=== PATIENT | male | born 1990 | race Caucasian/White ===

== ENCOUNTER 2022-05-16 12:55 | Inpatient (IN) | payer SELFPAY ==
[~2022-05-16] VITALS: Ht 180.3 cm; Wt 71.8 kg
[2022-05-16] MEDS ORDERED: NS IV 1000 ML 1,000 ML IV STA (13:13)
[2022-05-16] MEDS ORDERED: inSUlin (REGULAR) HUMAN 1 UNIT/0.01 ML (CHARGE PER UNIT) IV STA (13:20)
[2022-05-16 13:34] LABS: BASOPHILS # (AUTO) 0.2 10^3/uL (0.0-0.1); BASOPHILS % (AUTO) 0 % (0-10); EOSINOPHILS % (AUTO) 0 % (0-10); HEMATOCRIT 48 % (40-54); HEMOGLOBIN 16.1 g/dL (13.3-17.7); LYMPHOCYTES # (AUTO) 3.1 10^3/uL (1.0-4.0); LYMPHOCYTES % (AUTO) 7 % (12-44); MEAN CORPUSCULAR HEMOGLOBIN 31 pg (25-34); MEAN CORPUSCULAR HGB CONC 34 g/dL (32-36); MEAN CORPUSCULAR VOLUME 91 fL (80-99); MEAN PLATELET VOLUME 9.9 fL (9.0-12.2); MONOCYTES # (AUTO) 2.8 10^3/uL (0.0-1.0); MONOCYTES % (AUTO) 6 % (0-12); NEUTROPHILS # (AUTO) 37.1 10^3/uL (1.8-7.8); NEUTROPHILS % (AUTO) 83 % (42-75); PLATELET COUNT 829 10^3/uL (130-400)
[2022-05-16] MEDS ORDERED: ONDANSETRON 4 MG/2 ML (SDV) Z0FRAN ONE (13:35)
[2022-05-16 13:39] LABS: WHITE BLOOD COUNT 44.7 10^3/uL (4.3-11.0)
[2022-05-16 13:55] LABS: BAND NEUTROPHILS 1 %; BASOPHILS % (MANUAL) 0 %; EOSINOPHILS % (MANUAL) 0 %; LYMPHOCYTES % (MANUAL) 8 %; METAMYELOCYTES % 2 %; MONOCYTES % (MANUAL) 11 %; MYELOCYTES % 2 %; NEUTROPHILS % (MANUAL) 76 %; RBC MORPH NORMAL
[2022-05-16 13:57] LABS: ALBUMIN 4.3 GM/DL (3.2-4.5); BILIRUBIN,TOTAL 0.4 MG/DL (0.1-1.0); CALCIUM 9.2 MG/DL (8.5-10.1); CREATININE SERUM 2.08 MG/DL (0.60-1.30); MAGNESIUM 2.7 MG/DL (1.6-2.4); PHOSPHORUS 8.4 MG/DL (2.3-4.7); TOTAL PROTEIN 8.1 GM/DL (6.4-8.2)
[2022-05-16] MEDS ORDERED: LACTATED RINGERS 1,000 ML IV ONE (14:00)
[2022-05-16 14:03] LABS: POTASSIUM 6.8 MMOL/L (3.6-5.0)
--- NOTE | 2022-05-16 14:07 | ED General ---
General Chief Complaint: Glucose Problems Stated Complaint: TYPE 1 DIABETES Source of Information: Patient, Family Exam Limitations: Physical Impairments History of Present Illness Date Seen by Provider: May 16, 2022 Time Seen by Provider: 13:13 Initial Comments Here with report of elevated blood sugar and concerns for DKA. Patient is a type I diabetic since 7 years old. Apparently he ran out of his insulin 4 days ago. Patient and family report calling the clinic on 05/13/2022 and asking for refill. They were told that he could not have a refill until doctor's appointment on 06/01/2022 per the family. Apparently the refill was filled today patient was becoming increasingly confused and so they brought him directly to the emergency department. Patient reports significantly dry mouth, weakness, recent fevers and vomiting. He is rapidly breathing and appears uncomfortable. He also appears somewhat confused. History from patient and from patient's father and significant other. Timing/Duration: 3-4 Days, Getting Worse Severity: Moderate, Severe Associated Systoms: Cough (Intermittent for 2 weeks), Fever/Chills (Intermittent over the last few days), Nausea/Vomiting, Shortness of Air, Weakness Allergies and Home Medications Allergies Coded Allergies: No Known Drug Allergies (Unverified , 05/16/22) Patient Home Medication List Home Medication List Reviewed: Yes Review of Systems Review of Systems Constitutional: see HPI, fever, malaise EENTM: No nose congestion, No throat pain Respiratory: cough, short of breath Cardiovascular: no symptoms reported Gastrointestinal: No diarrhea; nausea, vomiting Genitourinary: no symptoms reported Musculoskeletal: no symptoms reported All Other Systems Reviewed Negative Unless Noted: Yes Past Mywvmfa-Hgeloo-Mvtjrr Hx Patient Social History Tobacco Use?: Yes Tobacco type used: Cigarettes Substance use?: Yes Substance type: Marijuana Alcohol Use?: No Past Medical History Surgeries: No Respiratory: No Cardiac: No Neurological: No Genitourinary: No Gastrointestinal: No Musculoskeletal: No Endocrine: Yes Diabetes, Insulin dep Family Medical History No Pertinent Family Hx Physical Exam Vital Signs Vital Signs - First Documented 05/16/22 13:04 Temp 36.6 Pulse 107 Resp 24 B/P (MAP) 145/85 (105) Pulse Ox 98 O2 Delivery Room Air Capillary Refill : Height, Weight, BMI Height: '" Weight: lbs. oz. kg; BMI Method: General Appearance: WD/WN, Moderate Distress HEENT: PERRL/EOMI, Other (Very dry mucous membranes) Neck: Non Tender, Supple Respiratory: No Crackles; Respiratory Distress; No Wheezing; Other (Tachypneic) Cardiovascular: No Murmur, Tachycardia Gastrointestinal: Non Tender, Soft Back: Normal Inspection, No CVA Tenderness, No Vertebral Tenderness Extremity: Normal Range of Motion, Non Tender Neurologic/Psychiatric: Alert, Depressed Affect, Disoriented (Confused) Skin: Normal Color, Warm/Dry Focused Exam Lactate Level 05/16/22 13:54: Lactic Acid Level 6.21*H Lactic Acid Level Laboratory Tests Test 05/16/22 13:54 Lactic Acid Level 6.21 MMOL/L (0.50-2.00) *H Progress/Results/Core Measures Suspected Sepsis SIRS Temperature: Pulse: Respiratory Rate: Laboratory Tests 05/16/22 13:27: White Blood Count 44.7*H Blood Pressure / Mean: 05/16/22 13:54: Lactic Acid Level 6.21*H Laboratory Tests 05/16/22 13:27: Creatinine 2.08H, Platelet Count 829H, Total Bilirubin 0.4 Results/Orders Lab Results Laboratory Tests Test 05/16/22 13:27 05/16/22 13:54 05/16/22 14:06 Range/Units White Blood Count 44.7 *H 4.3-11.0 10^3/uL Red Blood Count 5.26 4.30-5.52 10^6/uL Hemoglobin 16.1 13.3-17.7 g/dL Hematocrit 48 40-54 % Mean Corpuscular Volume 91 80-99 fL Mean Corpuscular Hemoglobin 31 25-34 pg Mean Corpuscular Hemoglobin Concent 34 32-36 g/dL Red Cell Distribution Width 12.1 10.0-14.5 % Platelet Count 829 H 130-400 10^3/uL Mean Platelet Volume 9.9 9.0-12.2 fL Immature Granulocyte % (Auto) 3 % Neutrophils (%) (Auto) 83 H 42-75 % Lymphocytes (%) (Auto) 7 L 12-44 % Monocytes (%) (Auto) 6 0-12 % Eosinophils (%) (Auto) 0 0-10 % Basophils (%) (Auto) 0 0-10 % Neutrophils # (Auto) 37.1 H 1.8-7.8 10^3/uL Lymphocytes # (Auto) 3.1 1.0-4.0 10^3/uL Monocytes # (Auto) 2.8 H 0.0-1.0 10^3/uL Eosinophils # (Auto) 0.0 0.0-0.3 10^3/uL Basophils # (Auto) 0.2 H 0.0-0.1 10^3/uL Immature Granulocyte # (Auto) 1.5 H 0.0-0.1 10^3/uL Neutrophils % (Manual) 76 % Lymphocytes % (Manual) 8 % Monocytes % (Manual) 11 % Eosinophils % (Manual) 0 % Basophils % (Manual) 0 % Metamyelocytes % 2 % Myelocytes % 2 % Band Neutrophils 1 % Blood Morphology Comment NORMAL Venous Blood pH 6.97 L 7.31-7.41 Venous Blood Partial Pressure CO2 24 L 40-52 MMHG Venous Blood HCO3 5 L 22-28 MMOL/L Sodium Level 125 *L 135-145 MMOL/L Potassium Level 6.8 *H 3.6-5.0 MMOL/L Chloride Level 89 L 98-107 MMOL/L Carbon Dioxide Level 7 *L 21-32 MMOL/L Anion Gap 29 H 5-14 MMOL/L Blood Urea Nitrogen 35 H 7-18 MG/DL Creatinine 2.08 H 0.60-1.30 MG/DL Estimat Glomerular Filtration Rate 43 BUN/Creatinine Ratio 17 Glucose Level 870 *H 70-105 MG/DL Calcium Level 9.2 8.5-10.1 MG/DL Corrected Calcium 9.0 8.5-10.1 MG/DL Phosphorus Level 8.4 H 2.3-4.7 MG/DL Magnesium Level 2.7 H 1.6-2.4 MG/DL Total Bilirubin 0.4 0.1-1.0 MG/DL Aspartate Amino Transf (AST/SGOT) 12 5-34 U/L Alanine Aminotransferase (ALT/SGPT) 18 0-55 U/L Alkaline Phosphatase 193 H 40-136 U/L Total Protein 8.1 6.4-8.2 GM/DL Albumin 4.3 3.2-4.5 GM/DL Lactic Acid Level 6.21 *H 0.50-2.00 MMOL/L Urine Color YELLOW Urine Clarity CLEAR Urine pH 5.5 5-9 Urine Specific [place] 1.025 H 1.016-1.022 Urine Protein NEGATIVE NEGATIVE Urine Glucose (UA) 3+ H NEGATIVE Urine Ketones 3+ H NEGATIVE Urine Nitrite NEGATIVE NEGATIVE Urine Bilirubin NEGATIVE NEGATIVE Urine Urobilinogen 0.2 < = 1.0 MG/DL Urine Leukocyte Esterase NEGATIVE NEGATIVE Urine RBC (Auto) TRACE-I H NEGATIVE Urine RBC NONE /HPF Urine WBC NONE /HPF Urine Squamous Epithelial Cells NONE /HPF Urine Crystals NONE /LPF Urine Bacteria NEGATIVE /HPF Urine Casts NONE /LPF Urine Mucus NEGATIVE /LPF Urine Culture Indicated NO Influenza Type A (RT-PCR) Detected H Not Detecte Influenza Type B (RT-PCR) Not Detected Not Detecte SARS-CoV-2 RNA (RT-PCR) Not Detected Not Detecte My Orders Orders - BLADIMIR BAUTISTA MD Accucheck Stat ONCE (05/16/22 13:13) Ed Iv/Invasive Line Start (05/16/22 13:13) Cbc With Automated Diff (05/16/22 13:13) Comprehensive Metabolic Panel (05/16/22 13:13) Magnesium (05/16/22 13:13) Ua Culture If Indicated (05/16/22 13:13) Phosphorus (05/16/22 13:13) Ed Iv/Invasive Line Start (05/16/22 13:13) Ns Iv 1000 Ml (Sodium Chloride 0.9%) (05/16/22 13:13) Insulin (Regular) Human (Novolin R (Per (05/16/22 13:20) Venous Blood Gas (05/16/22 13:20) Ondansetron Injection (Zofran Injectio (05/16/22 13:35) Manual Differential (05/16/22 13:27) Lactic Acid Analyzer (05/16/22 13:49) Blood Culture (05/16/22 13:49) Lactated Ringers (Lr 1000 Ml Iv Solution (05/16/22 14:00) Influenza A And B By Pcr (05/16/22 14:00) Covid 19 Inhouse Test (05/16/22 14:00) Chest 1 View, Ap/Pa Only (05/16/22 14:38) Vital Signs Adult Sepsis Patie Q15M (05/16/22 14:38) Remove Rings In Anticipation O (05/16/22 14:38) Ns Iv 1000 Ml (Sodium Chloride 0.9%) (05/16/22 15:00) Insulin Regular Drip (Myxredlin 100 Unit (05/16/22 15:15) Code/Resuscitation (05/16/22 15:07) Medications Given in ED Current Medications Medications Dose Ordered Sig/Jonathon Route Start Time Stop Time Status Last Admin Dose Admin Lactated Ringer's 1,000 ml @ 0 mls/hr Q0M ONCE IV 05/16/22 14:00 05/16/22 14:01 DC 05/16/22 13:57 1,000 MLS/HR Ondansetron HCl 4 mg STK-MED ONCE .ROUTE 05/16/22 13:35 05/16/22 13:36 DC 05/16/22 13:39 4 MG Vital Signs/I&O 05/16/22 13:04 Temp 36.6 Pulse 107 Resp 24 B/P (MAP) 145/85 (105) Pulse Ox 98 O2 Delivery Room Air Capillary Refill : Point of Care Testing Finger Stick Blood Glucose: 600 Blood Glucose Action Taken: DR. BAUTISTA NOTIFIED Progress Note : Progress Note Seen and evaluated. IV x2, CBC, CMP, UA, magnesium, phosphate, venous blood gas ordered. We have added blood cultures and lactic acid due to his extremely high white count although this may be related to significant dehydration due to DKA. Blood sugar is too high to read. Normal saline 1 L bolus and LR 1 L bolus ordered as well as insulin 7 units IV. Monitor patient. We will go ahead and check COVID and influenza secondary to report of recent fever. It sounds like he may have been sick over the last couple of weeks. 1512: Patient has been noted to be influenza A positive. I have notified the patient of this. His blood sugars are still too high to read. He is still quite dry. Repeat bolus of normal saline 1 L bolus ordered and this will be his third total liter of fluid. Due to the elevated white count and influenza positive we have ordered chest x-ray and that is pending. I have discussed the case with Dr. De Santiago. We did order insulin drip and I have instructed the nurse on use. 1522: I have discussed findings and concerns with patient's significant other as well as his mother and detailed current therapy and admission. Patient is still doing much better. Admit, inpatient status to the ICU. Patient and family agree with plan. Diagnostic Imaging Diagonstic Imaging: Xray Critical Care Note Critical Care Start Time: 13:13 Stop Time: 13:23 Total Time (minutes) 45 Departure Communication (Admissions) Time/Spoke to Admitting Phy: 15:04 Impression Primary Impression: Diabetic ketoacidosis Qualified Codes: E10.10 - Type 1 diabetes mellitus with ketoacidosis without coma Additional Impressions: Influenza A Dehydration Disposition: ADMITTED INPATIENT Condition: Critical Admissions Decision to Admit Reason: Admit from ER (General) Decision to Admit/Date: May 16, 2022 Time/Decision to Admit Time: 15:04 Departure-Patient Inst. Referrals: NASEEM VALDEZ (PCP/Family) Primary Care Physician BLADIMIR BAUTISTA MD May 16, 2022 14:07
[2022-05-16 14:09] LABS: BILIRUBIN,URINE NEGATIVE (NEGATIVE); CLARITY,URINE CLEAR; COLOR,URINE YELLOW; GLUCOSE, URINE (UA) 3+ (NEGATIVE); KETONES,URINE 3+ (NEGATIVE); LEUKOCYTE ESTERASE ,URINE NEGATIVE (NEGATIVE); NITRITE,URINE NEGATIVE (NEGATIVE); PH,URINE 5.5 (5-9); PROTEIN,URINE NEGATIVE (NEGATIVE)
[2022-05-16 14:18] LABS: BACTERIA,URINE NEGATIVE /HPF
[2022-05-16] MEDS ORDERED: NS IV 1000 ML 1,000 ML IV ONE (15:00)
--- NOTE | 2022-05-16 15:25 | Diagnostic Imaging Report ---
INDICATION: Influenza positive, elevated blood sugar. Frontal chest obtained at 3:14 p.m. There is no prior study for comparison. Heart and mediastinal silhouette are normal in appearance. The lungs show no focal infiltrate. There is no pneumothorax or pleural fluid. IMPRESSION: Negative chest. Dictated by: Dictated on workstation # [id number]
[2022-05-16] MEDS ORDERED: ONDANSETRON 4 MG/2 ML (SDV) Z0FRAN IVP ONE (15:30)
[2022-05-16] MEDS ORDERED: 1/2 NS IV SOLUTION 1,000 ML IV ONE (18:09)
[2022-05-16] MEDS ORDERED: ONDANSETRON 4 MG (ZOFRAN) ORAL DISSOLVE TAB PO PRN (18:15)
[2022-05-16] MEDS ORDERED: POTASSIUM CL 10MEQ/50ML IVPB 50 ML IV SCH (18:15)
[2022-05-16] MEDS ORDERED: ONDANSETRON 4 MG/2 ML (SDV) Z0FRAN IV PRN (18:15)
[2022-05-16] MEDS ORDERED: BISACODYL 10 MG SUPP (DULCOLAX) PR PRN (18:15)
[2022-05-16] MEDS ORDERED: MILK OF MAGNESIA 400 MG/5 ML 30 ML UDC PO PRN (18:15)
[2022-05-16] MEDS ORDERED: polyethylene glycoL POWDER 17 GM (MIRALAX) PACK PO PRN (18:15)
[2022-05-16] MEDS ORDERED: NS IV 500 ML 500 ML IV PRN (18:15)
[2022-05-16] MEDS ORDERED: LACTULOSE SYRUP 10GM/15ML (ENULOSE) 30ML UDC PO PRN (18:15)
[2022-05-16] MEDS ORDERED: HYDROmorphone 2 MG/ML VIAL (DILAUDID) IV PRN (18:15)
[2022-05-16] MEDS ORDERED: MELATONIN 3 MG TABLET PO PRN (18:15)
[2022-05-16] MEDS ORDERED: NS IV 1000 ML 1,000 ML IV SCH (18:15)
[2022-05-16] MEDS ORDERED: ACETAMINOPHEN 325 MG TABLET PO PRN (18:15)
[2022-05-16] MEDS ORDERED: ANTACID SUSP 30 ML UDC (MYLANTA) PO PRN (18:15)
[2022-05-16] MEDS ORDERED: ALPRAZolam 1 MG (XANAX) TAB PO PRN (18:15)
[2022-05-16] MEDS ORDERED: CALCIUM CARBONATE 500 MG (TUMS) TAB.CHEW PO PRN (18:15)
[2022-05-16] MEDS ORDERED: diphenhydrAMINE 25 MG TAB (BENADRYL) PO PRN (18:15)
[2022-05-16] MEDS ORDERED: diphenhydrAMINE 50 MG/ML INJ (BENADRYL) IVP PRN (18:15)
[2022-05-16] MEDS: 1/2 NS IV SOLUTION 1,000 ML IV SCH ×2 (18:27→22:35)
[2022-05-16 18:48] VITALS: BP 145/85
[2022-05-16 19:50] LABS: POTASSIUM 5.1 MMOL/L (3.6-5.0)
[2022-05-16 19:51] LABS: CALCIUM 8.5 MG/DL (8.5-10.1)
[2022-05-16 19:56] LABS: CREATININE SERUM 1.49 MG/DL (0.60-1.30)
[2022-05-16] MEDS: SENNOSIDES 8.6 MG (SENOKOT) TAB PO SCH (20:30)
[2022-05-16] MEDS: DOCUSATE SODIUM 100 MG (COLACE) CAP PO SCH (20:30)
[2022-05-16] MEDS ORDERED: OSELTAMIVIR 30 MG (TAMIFLU) CAPSULE PO SCH (21:00)
[2022-05-16] MEDS: RT-ALBUTEROL SULF 2.5 MG/3 ML PRE-MIX VIAL INH SCH (21:08)
[2022-05-16 22:54] LABS: CALCIUM 8.5 MG/DL (8.5-10.1); CREATININE SERUM 1.31 MG/DL (0.60-1.30); POTASSIUM 4.7 MMOL/L (3.6-5.0)
[2022-05-16] MEDS: POTASSIUM CL 10MEQ/50ML IVPB 50 ML IV SCH (23:24)
[2022-05-17] MEDS: D5 1/2 NS 1000 ML IV SOLUTION 1,000 ML IV SCH ×3 (01:32→15:57)
[2022-05-17] MEDS: POTASSIUM CL 10MEQ/50ML IVPB 50 ML IV SCH ×7 (01:32→22:33)
[2022-05-17] MEDS: 1/2 NS IV SOLUTION 1,000 ML IV SCH ×5 (02:15→22:15)
[2022-05-17 02:44] LABS: CALCIUM 9.4 MG/DL (8.5-10.1); CREATININE SERUM 1.3 MG/DL (0.60-1.30); POTASSIUM 5.2 MMOL/L (3.6-5.0)
[2022-05-17 04:52] LABS: ABG BASE EXCESS -10.2 MMOL/L (-2.5-2.5); ABG OXYGEN SATURATION 96 % (94-100); ABG PCO2 30 MMHG (35-45); ABG PO2 76 MMHG (79-93); ABG TCO2 15.8 MMOL/L (21.0-31.0)
[2022-05-17 04:53] LABS: ALLENS TEST YES-POS; INSPIRED O2 RA; PATIENT TEMP 36.6; VENTILATOR NO
[2022-05-17 04:54] LABS: ABG PH 7.31 (7.37-7.43)
[2022-05-17 05:48] LABS: BASOPHILS # (AUTO) 0.1 10^3/uL (0.0-0.1); BASOPHILS % (AUTO) 1 % (0-10); EOSINOPHILS # (AUTO) 0.3 10^3/uL (0.0-0.3); EOSINOPHILS % (AUTO) 3 % (0-10); HEMATOCRIT 40 % (40-54); HEMOGLOBIN 13.6 g/dL (13.3-17.7); LYMPHOCYTES # (AUTO) 3.2 10^3/uL (1.0-4.0); LYMPHOCYTES % (AUTO) 40 % (12-44); MEAN CORPUSCULAR HEMOGLOBIN 31 pg (25-34); MEAN CORPUSCULAR HGB CONC 34 g/dL (32-36); MEAN CORPUSCULAR VOLUME 89 fL (80-99); MEAN PLATELET VOLUME 10.3 fL (9.0-12.2); MONOCYTES # (AUTO) 0.6 10^3/uL (0.0-1.0); MONOCYTES % (AUTO) 8 % (0-12); NEUTROPHILS # (AUTO) 3.8 10^3/uL (1.8-7.8); NEUTROPHILS % (AUTO) 47 % (42-75); PLATELET COUNT 335 10^3/uL (130-400)
[2022-05-17 06:26] LABS: ALBUMIN 3.5 GM/DL (3.2-4.5); BILIRUBIN,TOTAL 0.4 MG/DL (0.1-1.0); CREATININE SERUM 1.21 MG/DL (0.60-1.30); MAGNESIUM 1.9 MG/DL (1.6-2.4); PHOSPHORUS 2.4 MG/DL (2.3-4.7); POTASSIUM 4.8 MMOL/L (3.6-5.0); TOTAL PROTEIN 6.6 GM/DL (6.4-8.2)
[2022-05-17] MEDS: MAGNESIUM 1 GM/100 ML IVPB 100 ML IV SCH (06:33)
[2022-05-17] MEDS: KCL 20 MEQ TAB (K-DUR) PO SCH (06:33)
[2022-05-17] MEDS: RT-ALBUTEROL SULF 2.5 MG/3 ML PRE-MIX VIAL INH SCH ×2 (07:31→21:57)
[2022-05-17] MEDS: OSELTAMIVIR 75 MG (TAMIFLU) CAPSULE PO SCH ×2 (08:46→20:42)
[2022-05-17] MEDS: SENNOSIDES 8.6 MG (SENOKOT) TAB PO SCH ×2 (08:47→20:15)
[2022-05-17] MEDS: DOCUSATE SODIUM 100 MG (COLACE) CAP PO SCH ×2 (08:47→20:15)
--- NOTE | 2022-05-17 08:53 | Diagnostic Imaging Report ---
INDICATION: Dyspnea. Comparison is made with prior examination of 05/16/2022. FINDINGS: The heart size, mediastinal configuration, and pulmonary vascularity are within normal limits. There is no pleural effusion, pneumothorax, or pneumonia. The osseous structures are unremarkable. IMPRESSION: No acute cardiopulmonary abnormality. Dictated by: Dictated on workstation # [id number]
--- NOTE | 2022-05-17 10:34 | Tele-ICU Consult ---
History of Present Illness History of Present Illness Date Seen by Provider: May 17, 2022 Time Seen by Provider: 10:33 Date of Admission (Tele-ICU Physician , consultation as per request of PCP Service provided via interactive audio and video [facility] [employer] [facility] system to a patient admitted to ICU bed in [facility]. Available chart/ vitals / labs / Images reviewed H&P is from ER notes Patient's information available about PMH, Shx, Fhx allergy reviewed inEMR. ROS as per chart and RN report Now in ICU, hemodynamically stable Video assessment done using teleICU camera, rest of exam as per RN Discussed with RN. Consultants: Hospital course: A/P DKA with DM type I -precipitated by infection *Insulin drip, continue to monitor for resolution of acidosis, AG and e lectrolytes. Continue hydration. *Tx Gastroparesis influenza A positive - tamiflu started 05/16 CHAZ - dehydration, hypotension - cont IVF - follow closely. improving Hyperkalemia due to CHAZ - improved - follow closely Leukocytosis - improved off ABX , follow PseudoHyponatremia - improved , follow Lines : periph , (Central Line Necessity Reviewed) Campuzano: void OG: Nutrition: po Analgesia: Anxiety/ delirium none VTE Prophylaxis: hep Stress Ulcer Prophylaxis: Glycemic Control: Plans in collaboration with bedside consultants and IM MDs. Discussed with RN to reach out if any questions or concerns A total of 32 minutes of critical care time was devoted to this patient today, required to treat and/or prevent further deterioration of critical care condition ( as above ) . I am remotely monitoring this patient from another state. I am unable to do the bedside exam, and history/physical and pertinent information is taken from other notes in the computer and bedside staff. . Allergies and Home Medications Allergies Coded Allergies: No Known Drug Allergies (Unverified , 05/16/22) Past Medical/Social/Family Hx Patient Social History Tobacco Use?: Yes Tobacco type used: Cigarettes Smoking Status: Current Everyday Smoker Use of E-Cig and/or Vaping dev: No Substance use?: No Substance type: Marijuana Alcohol Use?: No Pt stated abuse/neglect: No Immunizations Up To Date Influenza Vaccine Up-to-Date: Yes; Up-to-Date Current Status Advance Directives: No Communicates: Verbally Primary Language: Icelandic Preferred Spoken Language: Icelandic Is interpretation needed?: No Implanted or Applied Medical D: None Review of Systems Constitutional: see HPI Focused Exam Lactate Level 05/16/22 13:54: Lactic Acid Level 6.21*H 05/16/22 16:10: Lactic Acid Level 2.32*H 05/16/22 22:05: Lactic Acid Level 0.83 Height, Weight, BMI Height: '" Weight: lbs. oz. kg; 22.24 BMI Method: Exam Exam Patient acknowledged, consented, and participated in this virtual visit which was conducted using real time audio/video Vital Signs Date Time Temp Pulse Resp B/P (MAP) Pulse Ox O2 Delivery O2 Flow Rate FiO2 05/17/22 10:00 94 31 106/63 (77) 97 Room Air 05/17/22 09:00 101 18 117/69 (85) 96 Room Air 05/17/22 08:00 96 Room Air 05/17/22 08:00 37.0 05/17/22 08:00 106 17 114/74 (87) 95 Room Air 05/17/22 07:31 98 Room Air 05/17/22 07:00 105 05/17/22 07:00 101 19 119/79 (92) 97 Room Air 05/17/22 06:00 99 14 126/71 (89) 96 Room Air 05/17/22 05:00 107 19 130/76 (94) 95 Room Air 05/17/22 04:00 109 19 119/75 (90) 95 Room Air 05/17/22 03:43 36.5 111 16 121/83 (96) 94 Room Air 05/17/22 03:42 94 Room Air 05/17/22 02:00 118 29 132/86 (101) 95 Room Air 05/17/22 01:00 112 22 128/72 (90) 95 Room Air 05/17/22 01:00 112 05/17/22 00:00 36.6 112 23 119/79 (92) 94 Room Air 05/16/22 23:41 95 Room Air 05/16/22 23:00 107 22 129/75 (93) 94 Room Air 05/16/22 22:00 116 21 127/84 (98) 95 Room Air 05/16/22 21:08 99 Room Air 05/16/22 21:00 113 26 128/87 (101) 96 Room Air 05/16/22 20:00 122 17 134/81 (98) 97 Room Air 05/16/22 20:00 36.8 05/16/22 19:45 97 Room Air 05/16/22 19:45 121 23 140/82 (101) 96 Room Air 05/16/22 19:30 123 26 130/78 (95) 96 Room Air 05/16/22 19:15 121 18 121/57 (78) 96 Room Air 05/16/22 19:00 117 11 134/70 (91) 96 Room Air 05/16/22 19:00 117 05/16/22 18:48 36.6 107 98 21 05/16/22 18:00 Room Air 05/16/22 17:44 120 24 137/80 98 Room Air 05/16/22 13:04 36.6 107 24 145/85 (105) 98 Room Air I & O 05/17/22 07:00 Intake Total 6120 ml Output Total 200 ml Balance 5920 ml Height & Weight Height: '" Weight: lbs. oz. kg; 22.24 BMI Method: General Appearance: No Apparent Distress, WD/WN, Moderate Distress HEENT: PERRL/EOMI, Other (Very dry mucous membranes) Neck: Non Tender, Supple Respiratory: No Crackles; Respiratory Distress; No Wheezing; Other (Tachypneic) Cardiovascular: No Murmur, Tachycardia Capillary Refill: Less Than 3 Seconds Extremity: Normal Range of Motion, Non Tender Neurologic/Psychiatric: Alert, Depressed Affect, Disoriented (Confused) Skin: Normal Color, Warm/Dry Results Lab Laboratory Tests 05/16/22 13:27 05/16/22 19:15 05/16/22 22:05 05/17/22 02:05 05/17/22 04:50 Assessment/Plan Assessment/Plan 1 EVIN DEGROOT MD May 17, 2022 10:33
[2022-05-17 11:04] LABS: POTASSIUM 3.6 MMOL/L (3.6-5.0)
[2022-05-17 11:05] LABS: CALCIUM 8.3 MG/DL (8.5-10.1)
[2022-05-17 11:10] LABS: CREATININE SERUM 1.02 MG/DL (0.60-1.30)
--- NOTE | 2022-05-17 12:26 | History & Physical-Hospitalist ---
ISA[address]A [address] 05/17/22 1226: History of Present Illness HPI/Chief Complaint CC: DKA HPI: Adithya Olson is a 31 yo male who was admitted to the ICU from the ED on 05/16 with diagnosis of DKA. The patient arrived to the ED with father and significant other with altered mental state. History at the time was obtained from family, who stated the patient is a type 1 diabetic and ran out of his insulin 4 days ago and was unable to obtain refills until yesterday. However, by that time, the patient had developed altered mental status with confusion, accompanied by xerostomia, generalized weakness, fatigue, and multiple episodes of vomiting, prompting family to bring the patient to the ED. ED noted BS too high to be read initially, with beta-hydroxybutyrate of 8.47. Further bloodwork showed WBC of 44.7, lactic acid of 6.21, BUN of 22. These have all corrected to within normal levels at time of evaluation on 05/17. ABG obtained in the ED showed pH 7.31, pCO2 30, pO2 76. Patient swabbed and returned influenza A positive. Insulin drip started in the ED. On evaluation today, the patient is somnolent but easily rousable. He is alert and oriented x3 and states he feels the same now as he did yesterday, with fatigue, nausea, and generalized weakness. He notes he has not vomited since arrival to the hospital, but he does endorse burning epigastric pain which he attributes to multiple episodes of vomiting over the past few days prior to arrival. The patient denies any other pains or complaints. He states he has had no urinary symptoms, diarrhea, or constipation. Source: patient, old records Exam Limitations: no limitations Date Seen 05/17/22 Time Seen by a Provider: 09:25 Attending Physician Jin Jacob PCP Admitting Physician: Ca Bean DO Attending Physician: Ca Bean DO Referring Physician Date of Admission May 16, 2022 at 15:11 Home Medications & Allergies Home Medications Reviewed patient Home Medication Reconciliation performed by pharmacy medication reconciliations satellite tv technician and/or nursing. Patients Allergies have been reviewed. Allergies Allergies Coded Allergies No Known Drug Allergies ([id number]/13/22) Past Fqamvgz-Kkkaag-Bdptsf Hx Patient Social History Tobacco Use?: Yes Tobacco type used: Cigarettes Smoking Status: Current Everyday Smoker Use of E-Cig and/or Vaping dev: No Substance use?: No Substance type: Marijuana Alcohol Use?: No Pt feels they are or have been: No Current Status Advance Directives: No Communicates: Verbally Primary Language: Mongolian Preferred Spoken Language: Mongolian Is interpretation needed?: No Implanted or Applied Medical D: None Past Medical History Diabetes, Insulin dep (type 1, history of DKA) Family Medical History No Pertinent Family Hx Review of Systems Constitutional: malaise, weakness Respiratory: No dyspnea on exertion, No short of breath Cardiovascular: No chest pain Gastrointestinal: No abdominal pain, No constipation, No diarrhea; nausea; No vomiting Genitourinary: No dysuria, No frequency Other limited due to patient's clinical condition Physical Exam Physical Exam Vital Signs Vital Signs - First Documented 05/16/22 05/16/22 13:04 18:48 Temp 36.6 Pulse 107 Resp 24 B/P (MAP) 145/85 (105) Pulse Ox 98 O2 Delivery Room Air FiO2 21 Capillary Refill : Less Than 3 Seconds Height, Weight, BMI Height: '" Weight: lbs. oz. kg; 22.24 BMI Method: General Appearance: WD/WN, Other (somnolent but rousable) Respiratory: Chest Non Tender, Lungs Clear, Normal Breath Sounds, No Accessory Muscle Use, No Respiratory Distress Cardiovascular: No Edema, No Gallop, No JVD, No Murmur, Normal Peripheral Pulses, Tachycardia, Other (regular rhythm) Gastrointestinal: Normal Bowel Sounds, No Pulsatile Mass, Non Tender, Soft Neurologic/Psychiatric: Alert, Oriented x3 Skin: Normal Color, Warm/Dry Results Results/Procedures Labs Laboratory Tests 05/16/22 13:27 05/16/22 19:15 05/16/22 22:05 05/17/22 02:05 05/17/22 04:50 05/17/22 10:30 Patient resulted labs reviewed. Imaging: Reviewed Imaging Report Imaging Date of Exam:05/17/22 CHEST 1 VIEW, AP/PA ONLY IMPRESSION: No acute cardiopulmonary abnormality. Assessment/Plan Admission Diagnosis DKA Admission Status: Inpatient Order (span 2 midnights) Reason for Inpatient Admission: DKA requiring insulin drip and monitoring Assessment and Plan 1. Diabetic ketoacidosis: Continue insulin drip. Continue serial blood glucose level checks. Monitor patient's mental status. 2. Profound leukocytosis: Leukocytosis of 44.7 on arrival, likely due to severe dehydration. Resolved on 05/17 with leukocytosis of 8. 3. Acute kidney injury: BUN 35, Creatinine 2.08 on arrival, likely due to severe dehydration. Resolving as of 05/17 with creatinine and BUN within normal levels. 4. Profound metabolic acidosis with respiratory compensation: Lactic acid 6.21 on arrival, improved to 0.83 later in the evening. ABG with pH 7.31, pCO2 30 on 05/17, recheck ABG in 24 hours. 5. Influenza A: Unknown duration, not a candidate for Tamiflu. 6. Altered mental status: Secondary to encephalopathy due to DKA. CA BEAN DO 05/18/22 0450: Supervisory-Addendum Brief Verification & Attestation Participated in pt care: history, MDM, physical Personally performed: exam, history, MDM, supervision of care Care discussed with: Medical Student Procedures: n/a Results interpretation: Verified all documentation Verification and Attestation of Medical Student E/M Service A medical student performed and documented this service in my presence. I reviewed and verified all information documented by the medical student and made modifications to such information, when appropriate. I personally performed the physical exam and medical decision making. Ca Bean, May 18, 2022,04:[address] May 17, 2022 12:26 CA BEAN DO May 18, 2022 04:50
[2022-05-17] MEDS ORDERED: INSU100V5 SQ (14:04)
[2022-05-18] MEDS: 1/2 NS IV SOLUTION 1,000 ML IV SCH ×2 (02:15→02:35)
[2022-05-18] MEDS: D5 1/2 NS 1000 ML IV SOLUTION 1,000 ML IV SCH (02:30)
[2022-05-18] MEDS: POTASSIUM CL 10MEQ/50ML IVPB 50 ML IV SCH ×3 (02:30→05:16)
[2022-05-18 04:26] LABS: BASOPHILS % (AUTO) 0 % (0-10); EOSINOPHILS % (AUTO) 0 % (0-10); HEMATOCRIT 36 % (40-54); LYMPHOCYTES # (AUTO) 2.2 10^3/uL (1.0-4.0); LYMPHOCYTES % (AUTO) 17 % (12-44); MEAN CORPUSCULAR HEMOGLOBIN 30 pg (25-34); MEAN CORPUSCULAR HGB CONC 36 g/dL (32-36); MEAN CORPUSCULAR VOLUME 84 fL (80-99); MEAN PLATELET VOLUME 8.9 fL (9.0-12.2); MONOCYTES # (AUTO) 1.4 10^3/uL (0.0-1.0); MONOCYTES % (AUTO) 10 % (0-12); NEUTROPHILS # (AUTO) 9.7 10^3/uL (1.8-7.8); NEUTROPHILS % (AUTO) 73 % (42-75); PLATELET COUNT 382 10^3/uL (130-400); WHITE BLOOD COUNT 13.4 10^3/uL (4.3-11.0)
[2022-05-18 04:40] LABS: ALBUMIN 3.2 GM/DL (3.2-4.5); POTASSIUM 3.5 MMOL/L (3.6-5.0)
[2022-05-18 04:42] LABS: CALCIUM 8.3 MG/DL (8.5-10.1)
[2022-05-18 04:43] LABS: TOTAL PROTEIN 5.8 GM/DL (6.4-8.2)
[2022-05-18 04:45] LABS: BILIRUBIN,TOTAL 0.6 MG/DL (0.1-1.0)
[2022-05-18 04:46] LABS: PHOSPHORUS 1.3 MG/DL (2.3-4.7)
[2022-05-18 04:47] LABS: CREATININE SERUM 0.79 MG/DL (0.60-1.30)
[2022-05-18 04:50] LABS: MAGNESIUM 1.6 MG/DL (1.6-2.4)
[2022-05-18 05:06] LABS: ABG OXYGEN SATURATION 100 % (94-100); ABG PCO2 32 MMHG (35-45); ABG PH 7.44 (7.37-7.43); ABG PO2 141 MMHG (79-93); ABG TCO2 22.6 MMOL/L (21.0-31.0)
[2022-05-18 05:07] LABS: ALLENS TEST YES-POS; INSPIRED O2 ROOM AIR; PATIENT TEMP 36.8; VENTILATOR NO
[2022-05-18] MEDS: MAGNESIUM 1 GM/100 ML IVPB 100 ML IV SCH ×3 (05:15→06:27)
[2022-05-18] MEDS: KCL 20 MEQ TAB (K-DUR) PO SCH (05:16)
[2022-05-18] MEDS ORDERED: KCL 20 MEQ TAB (K-DUR) PO ONE (05:30)
[2022-05-18] MEDS: DOCUSATE SODIUM 100 MG (COLACE) CAP PO SCH ×2 (07:43→19:48)
[2022-05-18] MEDS: SENNOSIDES 8.6 MG (SENOKOT) TAB PO SCH ×2 (07:43→19:48)
--- NOTE | 2022-05-18 07:56 | Progress Note - Hospitalist ---
Subjective HPI/CC On Admission Date Seen by Provider: May 18, 2022 Time Seen by Provider: 11:00 CC: DKA HPI: Adithya Olson is a 31 yo male who was admitted to the ICU from the ED on 05/16 with diagnosis of DKA. The patient arrived to the ED with father and significant other with altered mental state. History at the time was obtained from family, who stated the patient is a type 1 diabetic and ran out of his insulin 4 days ago and was unable to obtain refills until yesterday. However, by that time, the patient had developed altered mental status with confusion, accompanied by xerostomia, generalized weakness, fatigue, and multiple episodes of vomiting, prompting family to bring the patient to the ED. ED noted BS too high to be read initially, with beta-hydroxybutyrate of 8.47. Further bloodwork showed WBC of 44.7, lactic acid of 6.21, BUN of 22. These have all corrected to within normal levels at time of evaluation on 05/17. ABG obtained in the ED showed pH 7.31, pCO2 30, pO2 76. Patient swabbed and returned influenza A positive. Insulin drip started in the ED. On evaluation today, the patient is somnolent but easily rousable. He is alert and oriented x3 and states he feels the same now as he did yesterday, with fatigue, nausea, and generalized weakness. He notes he has not vomited since arrival to the hospital, but he does endorse burning epigastric pain which he attributes to multiple episodes of vomiting over the past few days prior to arrival. The patient denies any other pains or complaints. He states he has had no urinary symptoms, diarrhea, or constipation. Subjective/Events-last exam Much improved status DKA resolved Moving down to the floor Sleeps most of the time with partner in the bed Focused Exam Lactate Level 05/16/22 13:54: Lactic Acid Level 6.21*H 05/16/22 16:10: Lactic Acid Level 2.32*H 05/16/22 22:05: Lactic Acid Level 0.83 Objective Exam Vital Signs Vital Signs Date Time Temp Pulse Resp B/P (MAP) Pulse Ox O2 Delivery O2 Flow Rate FiO2 05/18/22 23:45 36.2 89 18 126/69 (88) 99 Room Air 05/16/22 18:48 21 Capillary Refill : Less Than 3 Seconds General Appearance: Chronically ill Respiratory: Lungs Clear Cardiovascular: Regular Rate, Rhythm Results/Procedures Lab Patient resulted labs reviewed. Imaging: Reviewed Imaging Report Assessment/Plan Assessment and Plan Assess & Plan/Chief Complaint Assessment: DKA Plan: Moved to fourth floor KRYSTINA BEAN DO May 18, 2022 07:56
[2022-05-18] MEDS: RT-ALBUTEROL SULF 2.5 MG/3 ML PRE-MIX VIAL INH SCH (08:05)
[2022-05-18] MEDS: OSELTAMIVIR 75 MG (TAMIFLU) CAPSULE PO SCH ×2 (09:00→20:29)
--- NOTE | 2022-05-18 12:01 | Tele-ICU Progress Note ---
Subjective Date Seen by a Provider: May 18, 2022 Time Seen by a Provider: 09:27 Subjective/Events-last exam (Tele-ICU Physician , Progress Note ) Service provided via interactive audio and video telecommunications E-CARE system to a patient admitted to ICU bed in [facility]. Available chart/ vitals / labs / Images reviewed Video assessment done using teleICU camera, rest of exam as per RN Discussed with RN Events overnight : FEBRILE 37.4 hemodynamically stable Respiratory - I/O = pos 3 L Drips: Pressors- no Consultants: Hospital course: (05/16) 31yr old male admitted with DKA and influenza A Patient is seen today f/u DKA Consultants: Hospital course: A/P DKA with DM type I -precipitated by infection *Insulin dripto stop. start long acting -stop hydration. influenza A positive - tamiflu started 05/16 CHAZ - dehydration, hypotension RESOLVED Hyperkalemia due to CHAZ - improved - follow closely Leukocytosis - improved off ABX , follow PseudoHyponatremia - improved , follow Lines : periph , (Central Line Necessity Reviewed) Campuzano: void OG: Nutrition: po Analgesia: Anxiety/ delirium none VTE Prophylaxis: hep Stress Ulcer Prophylaxis: Glycemic Control: Plans in collaboration with bedside consultants and IM MDs. Discussed with RN to reach out if any questions or concerns A total of 10 minutes of critical care time was devoted to this patient today, required to treat and/or prevent further deterioration of critical care condition ( as above ) . I am remotely monitoring this patient from another state. I am unable to do the bedside exam, and history/physical and pertinent information is taken from other notes in the computer and bedside staff. . Sepsis Event Evaluation Height, Weight, BMI Height: '" Weight: lbs. oz. kg; 22.08 BMI Method: Focused Exam Lactate Level 05/16/22 13:54: Lactic Acid Level 6.21*H 05/16/22 16:10: Lactic Acid Level 2.32*H 05/16/22 22:05: Lactic Acid Level 0.83 Exam Exam Patient acknowledged, consented, and participated in this virtual visit which was conducted using real time audio/video Vital Signs Date Time Temp Pulse Resp B/P (MAP) Pulse Ox O2 Delivery O2 Flow Rate FiO2 05/18/22 10:00 89 127/79 (95) 95 Room Air 05/18/22 09:00 93 130/86 (101) 95 Room Air 05/18/22 08:06 99 Room Air 05/18/22 08:00 91 28 131/78 (95) Room Air 05/18/22 08:00 93 Room Air 05/18/22 07:07 80 05/18/22 07:00 78 10 121/82 (95) Room Air 05/18/22 06:00 89 28 109/67 (81) 94 Room Air 05/18/22 05:00 75 15 118/66 (83) 94 Room Air 05/18/22 04:00 104 16 108/65 (79) 97 Room Air 05/18/22 03:36 93 Room Air 05/18/22 03:00 104 15 126/87 (100) 96 Room Air 05/18/22 02:00 102 15 127/81 (96) 96 Room Air 05/18/22 01:00 96 21 124/78 (93) 97 Room Air 05/18/22 01:00 92 05/18/22 00:00 117 21 128/81 (97) 95 Room Air 05/17/22 23:59 96 Room Air 05/17/22 23:00 98 14 136/79 (98) 97 Room Air 05/17/22 22:38 37.4 05/17/22 22:00 98 14 156/88 (110) 97 Room Air 05/17/22 21:58 98 Room Air 05/17/22 21:21 37.4 05/17/22 21:00 91 28 132/93 (106) 98 Room Air 05/17/22 20:47 37.4 05/17/22 20:00 96 26 133/86 (102) 96 Room Air 05/17/22 19:47 94 Room Air 05/17/22 19:00 92 28 119/80 (93) 96 Room Air 05/17/22 19:00 94 05/17/22 18:00 94 28 132/75 (94) 97 Room Air 05/17/22 17:15 36.8 05/17/22 17:00 101 28 115/53 (73) 97 Room Air 05/17/22 16:04 36.4 05/17/22 16:00 98 24 123/73 (90) 96 Room Air 05/17/22 16:00 95 Room Air 05/17/22 15:00 97 18 123/84 (97) 95 Room Air 05/17/22 14:00 105 16 129/80 (96) 95 Room Air 05/17/22 13:00 97 05/17/22 13:00 94 18 126/82 (97) 98 Room Air I & O 05/18/22 07:00 Intake Total 4652 ml Output Total 500 ml Balance 4152 ml Height & Weight Height: '" Weight: lbs. oz. kg; 22.08 BMI Method: General Appearance: WD/WN, Other (somnolent but rousable) HEENT: PERRL/EOMI, Other (Very dry mucous membranes) Neck: Non Tender, Supple Respiratory: Chest Non Tender, Lungs Clear, Normal Breath Sounds, No Accessory Muscle Use, No Respiratory Distress Cardiovascular: No Edema, No Gallop, No JVD, No Murmur, Normal Peripheral Pulses, Tachycardia, Other (regular rhythm) Capillary Refill: Less Than 3 Seconds Extremity: Normal Range of Motion, Non Tender Neurologic/Psychiatric: Alert, Oriented x3 Skin: Normal Color, Warm/Dry Results Lab Laboratory Tests 05/16/22 13:27 05/16/22 19:15 05/16/22 22:05 05/17/22 02:05 05/17/22 04:50 05/17/22 10:30 05/18/22 04:15 Assessment/Plan Assessment/Plan 1 EVIN DEGROOT MD May 18, 2022 12:01
[2022-05-18 14:25] VITALS: BP 118/72
[2022-05-18] MEDS ORDERED: ENOXAPARIN 40 MG/0.4 ML (LOVENOX) SYR SC SCH (15:00)
[2022-05-18 16:00] VITALS: BP 110/63
[2022-05-18] MEDS: inSUlin ASPART (NovoLOG) 1 UNIT/0.01 ML (CHARGE PER UNIT) SC SCH ×2 (16:03→20:12)
[2022-05-18 19:48] VITALS: BP 115/66
[2022-05-18 23:45] VITALS: BP 126/69
[2022-05-19 04:47] VITALS: BP 119/64
[2022-05-19] MEDS: inSUlin ASPART (NovoLOG) 1 UNIT/0.01 ML (CHARGE PER UNIT) SC SCH ×2 (05:32→10:30)
[2022-05-19 06:17] LABS: BASOPHILS % (AUTO) 0 % (0-10); EOSINOPHILS % (AUTO) 0 % (0-10); HEMATOCRIT 40 % (40-54); HEMOGLOBIN 14.4 g/dL (13.3-17.7); LYMPHOCYTES # (AUTO) 2.2 10^3/uL (1.0-4.0); LYMPHOCYTES % (AUTO) 21 % (12-44); MEAN CORPUSCULAR HEMOGLOBIN 31 pg (25-34); MEAN CORPUSCULAR HGB CONC 36 g/dL (32-36); MEAN CORPUSCULAR VOLUME 85 fL (80-99); MONOCYTES # (AUTO) 0.8 10^3/uL (0.0-1.0); MONOCYTES % (AUTO) 7 % (0-12); NEUTROPHILS # (AUTO) 7.4 10^3/uL (1.8-7.8); NEUTROPHILS % (AUTO) 71 % (42-75); PLATELET COUNT 419 10^3/uL (130-400); WHITE BLOOD COUNT 10.4 10^3/uL (4.3-11.0)
[2022-05-19 06:28] LABS: ALBUMIN 3.6 GM/DL (3.2-4.5); POTASSIUM 3.8 MMOL/L (3.6-5.0)
[2022-05-19 06:31] LABS: TOTAL PROTEIN 6.6 GM/DL (6.4-8.2)
[2022-05-19 06:34] LABS: CREATININE SERUM 0.69 MG/DL (0.60-1.30)
[2022-05-19 06:37] LABS: MAGNESIUM 1.8 MG/DL (1.6-2.4)
[2022-05-19 08:16] VITALS: BP 104/62
[2022-05-19] MEDS: OSELTAMIVIR 75 MG (TAMIFLU) CAPSULE PO SCH (08:46)
[2022-05-19] MEDS: DOCUSATE SODIUM 100 MG (COLACE) CAP PO SCH (08:46)
[2022-05-19] MEDS: SENNOSIDES 8.6 MG (SENOKOT) TAB PO SCH (08:46)
[2022-05-19 11:42] VITALS: BP 107/75
[2022-05-19] MEDS ORDERED: CLIN150C20 PO (11:50)
[2022-05-19] MEDS ORDERED: INSU100V5 SQ (11:50)
[2022-05-19] MEDS ORDERED: INSU100C3 SQ (11:50)
[2022-05-19] MEDS ORDERED: ACHD5005 PO (11:50)
--- NOTE | 2022-05-19 11:51 | Discharge Summary ---
Discharge Summary Hospital Course Was the Problem List Reviewed?: Yes Problems/Dx: (1) Diabetic ketoacidosis Status: Acute Qualifiers: Qualified Codes: E10.10 - Type 1 diabetes mellitus with ketoacidosis without coma (2) Dehydration Status: Acute (3) Influenza A Status: Acute Hospital Course Date of Admission: May 16, 2022 at 15:11 Admission Diagnosis : Family Physician/Provider: Jin Jacob Date of Discharge: 05/19/22 Discharge Diagnosis: [ ] Hospital Course: Short course after he was admitted for DKA with influenza A. Responded to insulin drip. Ready for discharge after DKA resolved. Labs and Pending Lab Test: Laboratory Tests 05/18/22 15:49: Glucometer 206H 05/18/22 19:46: Glucometer 148H 05/19/22 05:25: White Blood Count 10.4, Red Blood Count 4.72, Hemoglobin 14.4, Hematocrit 40, Mean Corpuscular Volume 85, Mean Corpuscular Hemoglobin 31, Mean Corpuscular Hemoglobin Concent 36, Red Cell Distribution Width 11.7, Platelet Count 419H, Mean Platelet Volume 9.0, Immature Granulocyte % (Auto) 1, Neutrophils (%) (Auto) 71, Lymphocytes (%) (Auto) 21, Monocytes (%) (Auto) 7, Eosinophils (%) (Auto) 0, Basophils (%) (Auto) 0, Neutrophils # (Auto) 7.4, Lymphocytes # (Auto) 2.2, Monocytes # (Auto) 0.8, Eosinophils # (Auto) 0.0, Basophils # (Auto) 0.0, Immature Granulocyte # (Auto) 0.1, Sodium Level 139, Potassium Level 3.8, Chloride Level 101, Carbon Dioxide Level 27, Anion Gap 11, Blood Urea Nitrogen 6L, Creatinine 0.69, Estimat Glomerular Filtration Rate 128, BUN/Creatinine Ratio 9, Glucose Level 70, Calcium Level 9.0, Corrected Calcium 9.3, Magnesium Level 1.8, Total Bilirubin 1.0, Aspartate Amino Transf (AST/SGOT) 9, Alanine Aminotransferase (ALT/SGPT) 8, Alkaline Phosphatase 125, Total Protein 6.6, Albumin 3.6 05/19/22 05:27: Glucometer 79 05/19/22 10:21: Glucometer 236H Microbiology 05/16/22 MRSA Screen - Final, Complete MRSA not isolated 05/16/22 Blood Culture - Preliminary, Resulted No growth Home Meds Active Clindamycin HCl 150 Mg Capsule 150 Mg PO TID Novolog (Insulin Aspart) 100 Unit/Ml Cartridge 5 Units SQ AC Levemir (Insulin Determir) 100 Unit/Ml Soln 40 Units SQ BID Assessment/Pt Instructions PCP in 1 week Discharge Planning: <30 minutes discharge planning Discharge Instructions Discharge Diet: ADA Diet Discharge Physical Examination Vital Signs Vital Signs Date Time Temp Pulse Resp B/P (MAP) Pulse Ox O2 Delivery O2 Flow Rate FiO2 05/19/22 11:42 36.1 88 19 107/75 (86) 99 Room Air 05/16/22 18:48 21 General Appearance: No Apparent Distress, WD/WN Allergies: Coded Allergies: No Known Drug Allergies (Unverified , 05/16/22) Discharge Summary Date of Admission May 16, 2022 at 15:11 Date of Discharge Discharge Date: May 19, 2022 Admission Diagnosis DKA Discharge Diagnosis Assessment: DKA Plan: Moved to fourth floor KRYSTINA BEAN DO May 19, 2022 11:51
[2022-05-19 12:00] VITALS: BP 107/75
== END 2022-05-19 13:10 | disposition home or self-care (01) | DRG 638 ==
LOC: EDUNIT# 12:55 → ER 12:59 → ICU 15:11 → 4TH 05-18 14:08
PROVIDERS: ADMIT Internal Medicine; ATTEND Internal Medicine
DX: E10.10 Type 1 diabetes mellitus with ketoacidosis without coma (principal); E87.4 Mixed disorder of acid-base balance; G93.49 Other encephalopathy; N17.9 Acute kidney failure, unspecified; J10.1 Influenza due to other identified influenza virus with other respiratory manifestations; E86.0 Dehydration; I95.9 Hypotension, unspecified; E87.5 Hyperkalemia; D72.829 Elevated white blood cell count, unspecified; F17.210 Nicotine dependence, cigarettes, uncomplicated; Z20.822 Contact with and (suspected) exposure to COVID-19
CPT/HCPCS: 36415; 71045; 80048; 80053; 81000; 82010; 82805; 82947; 83036; 83605; 83735; 84100; 85007; 85025; 85027; 87040; 87081; 87636; 94640